=== PATIENT | female | born 1970 | race Caucasian/White ===

== ENCOUNTER 2017-07-03 18:26 | Emergency (ER) | payer MEDICAID ==
[~2017-07-03] VITALS: Ht 160 cm; Wt 54.0 kg
[~2017-07-03 18:26] MED LIST: ACET1TAB12 PO; CLON-527 PO; CLON-528 PO; HYDR-3686 PO; IBUP-1984 PO; IBUP-814 PO; MECL12.5 PO; MECL25TA3 PO; OXYB5TAB11 PO; SERT100T PO; SERT25TA5 PO
[2017-07-03] MEDS ORDERED: FAMOTIDINE 20 MG (18:41)
[2017-07-03] MEDS ORDERED: LATUDA 120 MG (18:41)
[2017-07-03] MEDS ORDERED: MECLIZINE 25 MG (18:41)
[2017-07-03] MEDS ORDERED: VALACYCLOVIR 500 MG (18:41)
[2017-07-03] MEDS ORDERED: VENLAFAXINE 75 MG (18:41)
[2017-07-03] MEDS ORDERED: TRAZODONE 50MG TABLETS (18:42)
[2017-07-03] MEDS ORDERED: HYDROXYZINE PAMOATE 25 MG (18:42)
[2017-07-03 19:29] LABS: BASOPHILS # (AUTO) 0.1 X10'3 (0-0.2); BASOPHILS % (AUTO) 0.6 % (0-1); EOSINOPHILS # (AUTO) 0.1 X10'3 (0-0.9); EOSINOPHILS % (AUTO) 1.3 % (0-6); HEMATOCRIT 38.3 % (35.0-45.0); HEMOGLOBIN 13.3 g/dl (12.0-16.0); LYMPHOCYTES % (AUTO) 33.1 % (21-51); MEAN CORPUSCULAR HEMOGLOBIN 33.4 PG (27.0-31.0); MEAN CORPUSCULAR HGB CONC 34.8 % (33.0-36.5); MEAN CORPUSCULAR VOLUME 95.9 FL (78-98); MEAN PLATELET VOLUME 8.9 FL (7.4-10.4); MONOCYTES # (AUTO) 0.4 X10'3 (0-0.9); MONOCYTES % (AUTO) 4.1 % (2-12); NEUTROPHILS # (AUTO) 5.5 X10'3 (1.8-7.7); NEUTROPHILS % (AUTO) 60.9 % (42-75); PLATELET COUNT 283 X10'3 (140-440); RED BLOOD COUNT 3.99 X10'6 (4.20-5.60); RED CELL DISTRIBUTION WIDTH 14.6 % (11.5-14.5)
[2017-07-03 19:40] LABS: HCG SERUM QL NEGATIVE
[2017-07-03 19:44] LABS: ALANINE AMINOTRANSFERASE 22 U/L (12-78); ALBUMIN 3.5 G/DL (3.4-5.0); ALBUMIN/GLOBULIN RATIO 0.8 (1.1-1.5); ALKALINE PHOSPHATASE 81 IU/L (46-116); ANION GAP 7 (8-16); ASPARTATE AMINO TRANSFERASE 17 U/L (10-37); BILIRUBIN,TOTAL 0.2 MG/DL (0.1-1.0); BLOOD UREA NITROGEN 7 MG/DL (7-18); BUN/CREATININE RATIO 8.8 (6.6-38.0); CALCIUM 8.7 MG/DL (8.5-10.1); CHLORIDE 110 MMOL/L (99-107); GLUCOSE 86 MG/DL (70-104); POTASSIUM 4.6 MMOL/L (3.5-5.1); SODIUM 147 MMOL/L (135-145); TOTAL CARBON DIOXIDE 30.2 MMOL/L (24-32); TOTAL PROTEIN 7.8 G/DL (6.4-8.2); eGFR 77 ML/MIN
[2017-07-03 20:06] LABS: ETHANOL 0.389 GM/DL (0.0-0.010)
[2017-07-03] MEDS: normal saline 1000ML IV soln IVB ONE (20:50)
[2017-07-03 21:34] VITALS: BP 111/76
== END 2017-07-03 21:35 | disposition home or self-care (01) ==
LOC: ER 18:27
DX: F10.129 Alcohol abuse with intoxication, unspecified (principal); I20.9 Angina pectoris, unspecified; F41.9 Anxiety disorder, unspecified; F20.9 Schizophrenia, unspecified; F17.200 Nicotine dependence, unspecified, uncomplicated; F15.10 Other stimulant abuse, uncomplicated; Z59.0 Homelessness
CPT/HCPCS: 36415; 71046; 80053; 80320; 84703; 85025; 96360; 99285; J7030

== ENCOUNTER 2018-05-08 09:19 | Emergency (ER) | payer MEDICAID ==
[~2018-05-08] VITALS: Ht 160 cm; Wt 59.1 kg
[~2018-05-08 09:19] MED LIST changes: +FAMOTIDINE 20 MG; +HYDROXYZINE PAMOATE 25 MG; +LATUDA 120 MG; +MECLIZINE 25 MG; +TRAZODONE 50MG TABLETS; +VALACYCLOVIR 500 MG; +VENLAFAXINE 75 MG
[2018-05-08 10:16] LABS: BASOPHILS # (AUTO) 0.1 X10'3 (0-0.2); BASOPHILS % (AUTO) 0.5 % (0-1); EOSINOPHILS # (AUTO) 0.3 X10'3 (0-0.9); EOSINOPHILS % (AUTO) 1.5 % (0-6); HEMATOCRIT 37.3 % (35.0-45.0); HEMOGLOBIN 12.5 g/dl (12.0-16.0); LYMPHOCYTES # (AUTO) 1.5 X10'3 (1.1-4.8); LYMPHOCYTES % (AUTO) 6.4 % (21-51); MEAN CORPUSCULAR HEMOGLOBIN 31.7 PG (27.0-31.0); MEAN CORPUSCULAR HGB CONC 33.5 % (33.0-36.5); MEAN CORPUSCULAR VOLUME 94.7 FL (78-98); MEAN PLATELET VOLUME 9.3 FL (7.4-10.4); MONOCYTES # (AUTO) 0.9 X10'3 (0-0.9); MONOCYTES % (AUTO) 4.1 % (2-12); NEUTROPHILS # (AUTO) 19.8 X10'3 (1.8-7.7); NEUTROPHILS % (AUTO) 87.5 % (42-75); PLATELET COUNT 250 X10'3 (140-440); RED BLOOD COUNT 3.94 X10'6 (4.20-5.60); RED CELL DISTRIBUTION WIDTH 13.8 % (11.5-14.5); WHITE BLOOD COUNT 22.7 X10'3 (4.5-11.0)
[2018-05-08 10:17] VITALS: BP 155/98
[2018-05-08 10:27] LABS: INR 1.1 INR; PARTIAL THROMBOPLASTIN TIME 40 SECONDS (22-32)
[2018-05-08 10:35] LABS: ALANINE AMINOTRANSFERASE 18 U/L (12-78); ALBUMIN 3.1 G/DL (3.4-5.0); ALBUMIN/GLOBULIN RATIO 0.6 (1.1-1.5); ALKALINE PHOSPHATASE 85 IU/L (46-116); ANION GAP 11 (8-16); ASPARTATE AMINO TRANSFERASE 11 U/L (10-37); BILIRUBIN,TOTAL 0.3 MG/DL (0.1-1.0); BLOOD UREA NITROGEN 11 MG/DL (7-18); BUN/CREATININE RATIO 13.8 (6.6-38.0); CALCIUM 9.6 MG/DL (8.5-10.1); CHLORIDE 98 MMOL/L (99-107); GLUCOSE 103 MG/DL (70-104); POTASSIUM 4.2 MMOL/L (3.5-5.1); SODIUM 133 MMOL/L (135-145); TOTAL CARBON DIOXIDE 23.6 MMOL/L (24-32); TOTAL PROTEIN 8.2 G/DL (6.4-8.2); eGFR 76 ML/MIN
[2018-05-08] MEDS ORDERED: magnesium oxide 400mg tablet PO ONE (10:35)
[2018-05-08] MEDS ORDERED: thiamine 100mg tablet PO ONE (10:35)
[2018-05-08] MEDS ORDERED: normal saline 1000ML IV soln IVB ONE (10:35)
[2018-05-08] MEDS ORDERED: phenobarbital inj 260 MG in normal saline 100ml IV soln 99 ML IV STA (10:48)
== END 2018-05-08 10:54 | disposition left against medical advice (07) ==
LOC: ER 09:20
DX: F10.239 Alcohol dependence with withdrawal, unspecified (principal); F10.229 Alcohol dependence with intoxication, unspecified; G89.29 Other chronic pain; F41.9 Anxiety disorder, unspecified; R10.10 Upper abdominal pain, unspecified; F20.9 Schizophrenia, unspecified; F15.10 Other stimulant abuse, uncomplicated; Z59.0 Homelessness; Z98.51 Tubal ligation status; Z86.14 Personal history of Methicillin resistant Staphylococcus aureus infection
CPT/HCPCS: 36415; 80053; 84484; 85025; 85610; 85730; 93005; 99284; J2560; J7030

== ENCOUNTER 2019-03-27 09:22 | Emergency (ER) | payer MEDICAID ==
[~2019-03-27] VITALS: Ht 160 cm; Wt 56.0 kg
[~2019-03-27 09:22] MED LIST changes: -OXYB5TAB11 PO; +OXYB5TAB16 PO
[2019-03-27 11:31] LABS: CLARITY,URINE CLEAR (Clear); COLOR,URINE YELLOW (Yellow); GLUCOSE, URINE NEGATIVE (Neg); KETONES,URINE NEGATIVE (Neg); LEUKOCYTE ESTERASE ,URINE SMALL (Neg); NITRITES, URINE NEGATIVE (Neg); OCCULT BLOOD,URINE TRACE-INTACT (Neg); PROTEIN,URINE NEGATIVE (Neg); URINE HCG NEGATIVE (NEG); UROBILINOGEN,URINE 0.2 E.U/dL (0.2-1.0)
[2019-03-27 11:57] LABS: UA COLLECTION TYPE CLN CATCH MIDSTREAM
[2019-03-27 11:58] LABS: BACTERIA,URINE FEW /HPF (Neg); MUCUS STRANDS FEW /LPF (Neg); SQUAMOUS EPITHELIAL CELL,UR MODERATE /LPF (FEW); TRICHOMONAS,URINE FEW /HPF (NEGATIVE)
[2019-03-27] MEDS ORDERED: azithromycin 250mg tablet PO ONE (12:05)
[2019-03-27] MEDS ORDERED: CefTRIAXone 1000mg IM Kit (w/lidocaine diluent) IM ONE (12:05)
[2019-03-27 12:40] VITALS: BP 134/89
[2019-03-27] MEDS ORDERED: METR-159 PO (12:52)
== END 2019-03-27 13:18 | disposition home or self-care (01) ==
LOC: ER 09:23
DX: A59.01 Trichomonal vulvovaginitis (principal); G89.29 Other chronic pain; F15.90 Other stimulant use, unspecified, uncomplicated; Z98.51 Tubal ligation status; Z59.0 Homelessness; Z86.14 Personal history of Methicillin resistant Staphylococcus aureus infection; Z79.899 Other long term (current) drug therapy
CPT/HCPCS: 36415; 81001; 81025; 87088; 87210; 87491; 87591; 96372; 99284; J0696

== ENCOUNTER 2019-05-08 13:38 | Emergency (ER) | payer MEDICAID ==
[~2019-05-08] VITALS: Ht 160 cm; Wt 54.5 kg
[~2019-05-08 13:38] MED LIST changes: -ACET1TAB12 PO; -CLON-527 PO; -CLON-528 PO; -HYDR-3686 PO; -HYDROXYZINE PAMOATE 25 MG; -IBUP-1984 PO; -MECL12.5 PO; -MECLIZINE 25 MG; -OXYB5TAB16 PO; -SERT100T PO; -SERT25TA5 PO
[2019-05-08 13:57] VITALS: BP 129/67
[2019-05-08] MEDS ORDERED: ketorolac tromethamine 15mg/ml inj. IM ONE (15:15)
[2019-05-08] MEDS ORDERED: LIDOcaine 1% W/epiNEPHrine 1:200,000 10ml vial IJ ONE (15:15)
[2019-05-08] MEDS ORDERED: CEPH250T PO (15:20)
[2019-05-08] MEDS ORDERED: DOXY100C43 PO (15:20)
[2019-05-08] MEDS ORDERED: MUPI22OI30 TOP (15:20)
== END 2019-05-08 15:42 | disposition home or self-care (01) ==
LOC: ER 13:40
DX: L01.09 Other impetigo (principal); L03.221 Cellulitis of neck; L03.811 Cellulitis of head [any part, except face]; G89.29 Other chronic pain; F41.9 Anxiety disorder, unspecified; F20.9 Schizophrenia, unspecified; F15.90 Other stimulant use, unspecified, uncomplicated; F10.10 Alcohol abuse, uncomplicated; Z86.14 Personal history of Methicillin resistant Staphylococcus aureus infection; Z98.51 Tubal ligation status; Z59.0 Homelessness; Z79.899 Other long term (current) drug therapy; Y90.9 Presence of alcohol in blood, level not specified
CPT/HCPCS: 10160; 96372; 99284; J1885

== ENCOUNTER 2023-06-27 08:11 | Emergency (ER) | payer MEDICAID ==
[~2023-06-27] VITALS: Ht 160 cm; Wt 71.9 kg
[2023-06-27 08:11] VITALS: BP 169/96; PULSE 66; RESP 16; TEMP 98; O2SAT 100
[2023-06-27] MEDS ORDERED: TRAZ-256 PO (08:28)
[2023-06-27] MEDS ORDERED: OXYB5TAB17 PO (08:28)
[2023-06-27] MEDS ORDERED: ARIP5TAB14 PO (08:28)
== END 2023-06-27 08:39 | disposition home or self-care (01) ==
LOC: ER 08:11
DX: Z76.0 Encounter for issue of repeat prescription (principal); G89.29 Other chronic pain; Z86.14 Personal history of Methicillin resistant Staphylococcus aureus infection; F15.90 Other stimulant use, unspecified, uncomplicated; Z72.89 Other problems related to lifestyle; Z98.51 Tubal ligation status; Z79.899 Other long term (current) drug therapy
CPT/HCPCS: 99281

== ENCOUNTER 2023-07-27 12:09 | Emergency (ER) | payer MEDICAID ==
[~2023-07-27] VITALS: Ht 157.5 cm; Wt 69.9 kg
[~2023-07-27 12:09] MED LIST changes: +ARIP5TAB14 PO; +OXYB5TAB21 PO; +TRAZ-256 PO
[2023-07-27 12:12] VITALS: BP 171/91; PULSE 79; RESP 16; TEMP 98; O2SAT 100
== END 2023-07-27 16:13 | disposition home or self-care (01) ==
LOC: ER 12:10
DX: N93.9 Abnormal uterine and vaginal bleeding, unspecified (principal); F17.200 Nicotine dependence, unspecified, uncomplicated; F15.90 Other stimulant use, unspecified, uncomplicated; Z79.1 Long term (current) use of non-steroidal anti-inflammatories (NSAID); Z79.899 Other long term (current) drug therapy; Z98.51 Tubal ligation status
CPT/HCPCS: 76856; 93976; 99284

== ENCOUNTER 2025-02-27 14:01 | Emergency (ER) | payer MEDICAID ==
[~2025-02-27] VITALS: Ht 167.6 cm; Wt 61.2 kg
[~2025-02-27 14:01] MED LIST changes: +ARIP5TAB12 PO; -ARIP5TAB14 PO
[2025-02-27 14:05] VITALS: BP 163/105; PULSE 93; TEMP 98; O2SAT 99
--- NOTE | 2025-02-27 14:19 | Physician Documentation ---
History of Present Illness ~ Chief Complaint: Anxiety Stated Complaint: ANXIETY Time Seen by MD: 14:26 Primary Medical Doctor: NO PMD HPI MSE: Patient 54-year-old female that reports to the emergency department for evaluation of her anxiety. Patient reports that she has a long history of anxiety but has had multiple panic attacks over the last couple of days and is unable to get them under control. Patient reports that she takes hydroxyzine on a daily basis to control her anxiety but when she is exhibiting acute panic attacks the hydroxyzine is not enough to break the cycle. Patient reports feeling short of breath and been unable to catch her breath even with sitting. Reports that she previously took Xanax and Klonopin years ago they do seem to help when she is having a pain panic attack she has not taken them for years. Denies any other significant past medical history a this time and patient denies any other symptoms at this time. Medication Reconciliation Allergies: Coded Allergies: No Known Allergies (Unverified , 03/27/19) Scheduled Ibuprofen (Motrin), 600 MG PO BID, (Reported) Oxybutynin Chloride (Oxybutynin Chloride), 2 TAB PO Q12H Trazodone HCl (Trazodone HCl), 1 TAB PO HS Scheduled PRN Aripiprazole* (Abilify*), 30 MG PO DAILY PRN for for anxiety/agitation Meclizine Hcl (Antivert), 1 TABLET PO TID PRN for dizziness/vertigo Miscellaneous Medications [Famotidine 20MG Tablets], (Reported) [Latuda 120MG Tablets], (Reported) [Trazodone 50MG Tablets], (Reported) [Valacyclovir 500MG Tablets], (Reported) [Venlafaxine Er 75MG Capsules], (Reported) Past Medical History Past Medical History: Vertigo, Angina, Chronic Pain, *INFECTIOUS DZ*, MRSA Abscess, Anxiety, Schizophrenia Past Surgical History: tubal ligation Alcohol Use: Abuse Drug Use: methamphetamine Lives with: Other Lives In: Homeless Review of Systems ROS As stated above in the HPI, otherwise all systems are reviewed and negative. Physical Exam Vital Signs: Temperature: 98.0, Source: Temporal, Heart Rate: 93, Respiratory Rate: 16, BP: 163/105, Pulse Oximetry: 99, Weight: 61.200 Oxygen Flow Rate: 0 Physical Exam VITALS: Reviewed and as above. GENERAL: Alert, no apparent distress, tearful HEENT: Normocephalic, atraumatic, PERRL, EOMI, dry mucosa, no erythema RESPIRATORY: Lungs clear, normal breath sounds, no respiratory distress. CHEST: No accessory muscle use, no retractions CV: Regular rate, rhythm, no edema, no murmur, No: JVD GI: Soft, non-tender, bowels sounds present, no rebound, guarding, or rigidity BACK: No CVA tenderness, or swelling MUSCULOSKELETAL No deformities, no edema SKIN: Warm and dry, no rash NEURO: Oriented x4, No motor or sensory deficit PSYCH: Normal mood and affect, no agitation Progress Results/Orders Results/Orders Orders - SARAHI PORTER MEDIA DEVELOPER Chest,Single View (02/27/25 14:19) Completed Orders - SARAHI PORTER MEDIA DEVELOPER Cbc/Diff (02/27/25 14:19) CMP (02/27/25 14:19) TSH (02/27/25 14:19) Chest,Single View (02/27/25 14:19) Stat Ekg (02/27/25 14:19) Diazepam Tablet (Valium Tablet) (02/27/25 14:55) Medications Received in ER Medications (Trade) Dose Ordered Sig/Malissa Route PRN Reason Start Time Stop Time Status Last Admin Dose Admin (Valium tablet) 5 mg ONCE ONCE PO 02/27/25 14:55 02/27/25 14:58 DC 02/27/25 15:12 5 MG Vital Signs 02/27/25 02/27/25 14:05 15:12 Temp 98.0 Pulse 93 Resp 16 16 B/P (MAP) 163/105 Pulse Ox 99 O2 Flow Rate 0 Laboratory Tests Test 02/27/25 14:34 White Blood Count 8.4 Red Blood Count 4.41 Hemoglobin 13.6 Hematocrit 39.9 Mean Corpuscular Volume 90.3 Mean Corpuscular Hemoglobin 30.8 Mean Corpuscular Hemoglobin Concent 34.1 Red Cell Distribution Width 13.2 Platelet Count 295 Mean Platelet Volume 9.3 Neutrophils (%) (Auto) 61.3 Lymphocytes (%) (Auto) 31.0 Monocytes (%) (Auto) 5.7 Eosinophils (%) (Auto) 0.7 Basophils (%) (Auto) 1.3 H Neutrophils # (Auto) 5.2 Lymphocytes # (Auto) 2.6 Monocytes # (Auto) 0.5 Eosinophils # (Auto) 0.1 Basophils # (Auto) 0.1 CBC Comment Sodium Level 141 Potassium Level 4.2 Chloride Level 107 Carbon Dioxide Level 27.3 Anion Gap 7 L Blood Urea Nitrogen 11 Creatinine 0.92 H Estimated GFR/1.73 m2 63 BUN/Creatinine Ratio 12.0 Glucose Level 92 Calcium Level 9.0 Total Bilirubin 0.4 Aspartate Amino Transf (AST/SGOT) 17 Alanine Aminotransferase (ALT/SGPT) 14 Alkaline Phosphatase 92 Total Protein 7.5 Albumin 3.4 Globulin 4.1 Albumin/Globulin Ratio 0.8 L Thyroid Stimulating Hormone (TSH) 0.89 Chemistry Comments Medical Decision Making Findings This patient presents with symptoms consistent with acute anxiety reaction / panic attack. Low suspicion for acute cardiopulmonary process including ACS, PE, or thoracic aortic dissection. Denies any ingestions or any other medical complaints. No evidence of alcohol withdrawal symptoms. Given history and physical presentation not consistent with overt toxidrome, ingestion. Presentation not consistent with a medical emergency at this time. No acute indication for psychiatric consultation (without SI/HI, AH/VH). Cautious return precautions discussed with full understanding. Patient has been administered Valium here in the emergency department with observation. Reassess in 30 minutes. Reports improvement with the Valium feels like she is ready for her son to come pick her up now. Patient will follow up with her primary care provider this week and have a re-evaluation of her depression meds completed and discussed her visit here in the emergency department today. Patient will return to the emergency department with any worsening or recurrent symptoms or any additional concerning symptoms that we discussed here today i.e. increased agita tion increased shortness of breath increased chest pain concerns of self harm harming someone else inability to emotionally regulate or any other concerning symptoms. Differential Dx:Considerations: Include: Alcohol abuse, Anxiety, Bipolar disorder, Conversion disorder, Depression, Encephaloathy, Homicidal, Panic disorder, Personality disorder, Schizophrenia, Substance abuse, Suicidal, Other Departure Disposition: 01 HOME / SELF CARE / HOMELESS Impression: Primary Impression: Anxiety Additional Impressions: Panic attack Panic disorder Anxiety attack Tearfulness Depression Discharge Instructions: Panic Attack Additional Instructions: This patient presents with symptoms consistent with acute anxiety reaction / panic attack. Low suspicion for acute cardiopulmonary process including ACS, PE, or thoracic aortic dissection. Denies any ingestions or any other medical complaints. No evidence of alcohol withdrawal symptoms. Given history and physical presentation not consistent with overt toxidrome, ingestion. Presentation not consistent with a medical emergency at this time. No acute indication for psychiatric consultation (without SI/HI, AH/VH). Cautious return precautions discussed with full understanding. Patient has been administered Valium here in the emergency department with observation. Reassess in 30 minutes. Reports improvement with the Valium feels like she is ready for her son to come pick her up now. Patient will follow up with her primary care provider this week and have a re-evaluation of her depression meds completed and discussed her visit here in the emergency department today. Patient will return to the emergency department with any worsening or recurrent symptoms or any additional concerning symptoms that we discussed here today i.e. increased agitation increased shortness of breath increased chest pain concerns of self harm harming someone else inability to emotionally regulate or any other concerning symptoms. Referrals: NO PRIMARY CARE PROVIDER (PCP) Prescriptions Diazepam* (Valium*) 5 Mg Tablet 1 TAB PO Q12H PRN for muscle spasms for 5 Days, #10 TAB Prov: SARAHI PORTER 02/27/25 Education Educated: Patient Educated regarding: diagnosis, treatment, need for follow up Signature Scribe Signature: A Attestation: Scribed for Sarahi Porter by GIANLUCA Haywood . 02/27/25 15:30 SARAHI PORTER Feb 27, 2025 14:19
--- NOTE | 2025-02-27 14:31 | ELECTROCARDIOGRAPH REPORT ---
[facility] Test Date: 2025-02-27 Test Time: 14:29:24 Pat Name: SHAMEKA GIMENEZ Department: EMERGENCY ROOM Room: Gender: F Filling Station Attendant: BLANCA : 1970 Requested By: AYDIN PORTER Order Number: [id number] Reading MD: Measurements Intervals Felt Rate: 76 P: 71 TN: 133 QRS: 97 QRSD: 91 T: 69 QT: 391 QTc: 440 Interpretive Statements Sinus rhythm Borderline right axis deviation Please click the below link to view image of tracing.
[2025-02-27 14:58] LABS: MEAN PLATELET VOLUME 9.3 FL (7.4-10.4); RED CELL DISTRIBUTION WIDTH 13.2 % (11.5-14.5)
--- NOTE | 2025-02-27 14:58 | RADIOLOGY REPORT ---
CHEST RADIOGRAPH Indication: SOB Technique: Single frontal view of the chest was obtained COMPARISON: None FINDINGS: Lines and Tubes: None Lungs: Clear Pleura: No effusion. No pneumothorax. Cardiomediastinal contours: Unremarkable Bones: Unremarkable IMPRESSION: No acute disease.
[2025-02-27 15:08] LABS: CREATININE 0.92 MG/DL (0.40-0.90); TOTAL CARBON DIOXIDE 27.3 MMOL/L (24-32); eCRCL 65 ML/MIN; eGFR 63 ML/MIN
[2025-02-27 15:12] VITALS: RESP 16
[2025-02-27] MEDS ORDERED: DIAZ5TAB22 PO (15:28)
== END 2025-02-27 16:04 | disposition home or self-care (01) ==
LOC: ER 14:01
DX: F41.0 Panic disorder [episodic paroxysmal anxiety] (principal); F32.A Depression, unspecified; F20.9 Schizophrenia, unspecified; F15.90 Other stimulant use, unspecified, uncomplicated; F10.10 Alcohol abuse, uncomplicated; G89.29 Other chronic pain; Z86.14 Personal history of Methicillin resistant Staphylococcus aureus infection; Z98.51 Tubal ligation status; Z79.899 Other long term (current) drug therapy; Y90.9 Presence of alcohol in blood, level not specified; Z59.00 Homelessness unspecified
CPT/HCPCS: 36415; 71045; 80053; 84443; 85025; 93005; 99285

== ENCOUNTER 2025-04-19 06:22 | Emergency (ER) | payer MEDICAID ==
[~2025-04-19] VITALS: Ht 167.6 cm; Wt 61.9 kg
[~2025-04-19 06:22] MED LIST changes: +CLON1TAB2 PO
[2025-04-19 06:24] VITALS: TEMP 98
--- NOTE | 2025-04-19 06:37 | Physician Documentation ---
History of Present Illness General Chief Complaint: Anxiety Stated Complaint: PANIC ATTACKS Time Seen by MD: 06:37 Primary Medical Doctor: NO PMD History of Present Illness Initial Comments The patient is a 55-year-old female who states she has anxiety and that she needs Klonopin until she can see her doctor on Saturday. The patient states I need as many Klonopin in his I can get. The patient states that she has been coming to the emergency room for Klonopin for the last 30 days. Patient's symptoms are mild to moderate and persistent Medication Reconciliation Allergies: Coded Allergies: No Known Allergies (Unverified , 03/27/19) Scheduled Ibuprofen (Motrin), 600 MG PO BID, (Reported) Oxybutynin Chloride (Oxybutynin Chloride), 2 TAB PO Q12H Trazodone HCl (Trazodone HCl), 1 TAB PO HS Scheduled PRN Aripiprazole* (Abilify*), 30 MG PO DAILY PRN for for anxiety/agitation Clonazepam (Klonopin), 1 TAB PO PRN PRN for anxiety Clonazepam (Clonazepam), 1 TABLET PO DAILY PRN for for anxiety/agitation Meclizine Hcl (Antivert), 1 TABLET PO TID PRN for dizziness/vertigo Miscellaneous Medications [Famotidine 20MG Tablets], (Reported) [Latuda 120MG Tablets], (Reported) [Trazodone 50MG Tablets], (Reported) [Valacyclovir 500MG Tablets], (Reported) [Venlafaxine Er 75MG Capsules], (Reported) Past Medical History Past Medical History: Vertigo, Angina, Chronic Pain, *INFECTIOUS DZ*, MRSA Abscess, Anxiety, Schizophrenia Past Surgical History: tubal ligation Smoking: Cigarettes Alcohol Use: Abuse Drug Use: methamphetamine Lives with: Other Lives In: Homeless Review of Systems All Other Systems at this time: Reviewed and Negative Physical Exam Physical Exam Vital Signs: Temperature: 98.0, Source: Temporal, Heart Rate: 89, Respiratory Rate: 16, BP: 167/92, Pulse Oximetry: 97, Weight: 61.900 Oxygen Flow Rate: 0 Physical Exam VITALS: Reviewed and as above. GENERAL: Alert, no apparent distress. HEENT: Normocephalic, atraumatic, PERRL, EOMI, dry mucosa, no erythema RESPIRATORY: Lungs clear, normal breath sounds, no respiratory distress. CHEST: No accessory muscle use, no retractions CV: Regular rate, rhythm, no edema, no murmur, No: JVD GI: Soft, non-tender, bowels sounds present, no rebound, guarding, or rigidity BACK: No CVA tenderness, or swelling MUSCULOSKELETAL: No deformities, no edema SKIN: Warm and dry, no rash NEURO: Oriented x4, No motor or sensory deficit PSYCH: Normal mood and affect, no agitation Progress Results/Orders Results/Orders Completed Orders - JULY PERES MD Lorazepam Tablet (Ativan Tablet) (04/19/25 06:55) Clonazepam 1mg Tablet (Klonopin 1mg Tabl (04/19/25 06:55) Vital Signs 04/19/25 04/19/25 06:24 07:18 Temp 98.0 Pulse 89 92 Resp 16 18 B/P (MAP) 167/92 184/103 Pulse Ox 97 98 O2 Flow Rate 0 Medical Decision Making Additional information obtaine: old records Findings The patient with the anxiety patient's got an appointment on Saturday she has been told that we will not continue to give her prescriptions for clonazepam out of the emergency room. The patient has been given a prescription for five pills the patient will be discharged she was given a 1 mg dose of Klonopin while in the emergency department. The patient's pulse oximetry was interpreted as adequate and normal. Prior hospitalizations has been reviewed Differential Diagnosis Anxiety, panic attacks, drug-seeking behavior, Departure Time of Disposition: 06:59 Disposition: 01 HOME / SELF CARE / HOMELESS Impression: Primary Impression: Anxiety Discharge Instructions: Panic Attack Referrals: NO PRIMARY CARE PROVIDER (PCP) Prescriptions Clonazepam (Clonazepam) 1 Mg Tablet 1 TABLET PO DAILY PRN for for anxiety/agitation, #5 TABLET Prov: JULY PERES MD 04/19/25 Signature Scribe Signature: No scribe Attestation: The note accurately reflects work and decisions made by me.July Peres MD 04/20/25 07:21 JULY PERES MD Apr 19, 2025 06:37
[2025-04-19] MEDS ORDERED: CLON-371 PO (06:58)
[2025-04-19 07:18] VITALS: BP 184/103; PULSE 92; RESP 18; O2SAT 98
== END 2025-04-19 07:22 | disposition home or self-care (01) ==
LOC: ER 06:23
DX: F41.9 Anxiety disorder, unspecified (principal); F20.9 Schizophrenia, unspecified; F15.90 Other stimulant use, unspecified, uncomplicated; F10.10 Alcohol abuse, uncomplicated; Z98.51 Tubal ligation status; Y90.9 Presence of alcohol in blood, level not specified
CPT/HCPCS: 99283